=== PATIENT | female | born 1960 | race Two or more races ===

== ENCOUNTER 2022-05-15 07:26 | Day surgery (SDC) | payer OTHER ==
[~2022-05-15] VITALS: Ht 162.6 cm; Wt 81.6 kg
[~2022-05-15 07:26] MED LIST: ACID REDUCER20 M1 PO; CHILDREN'S ASPI81 MG PO; TIROSINT25 MCG PO; XELPROS2.5 ML OP; [UNRECOGNIZED DRUG - OTHER] PO
[2022-05-15] MEDS ORDERED: CEPHALEXIN500 MG PO (15:49)
[2022-05-15] MEDS ORDERED: CILOXAN5 ML OTIC (15:49)
== END 2022-05-15 18:00 | disposition home or self-care (01) ==
LOC: CIR.AMB 07:26
PROVIDERS: ATTEND Otolaryngology Otology & Neurotology
DX: H72.822 Total perforations of tympanic membrane, left ear (principal); H70.12 Chronic mastoiditis, left ear; H90.12 Conductive hearing loss, unilateral, left ear, with unrestricted hearing on the contralateral side; Z20.822 Contact with and (suspected) exposure to COVID-19; I10 Essential (primary) hypertension; E78.00 Pure hypercholesterolemia, unspecified; E03.8 Other specified hypothyroidism; F17.210 Nicotine dependence, cigarettes, uncomplicated; E66.09 Other obesity due to excess calories